=== PATIENT | female | born 1960 | race Caucasian/White ===

== ENCOUNTER 2017-01-30 18:14 | Emergency (ER) | payer BC ==
[~2017-01-30 18:14] MED LIST: ASPIR 8181 M1 PO; ASPIR 8181 MG PO; ASPIRIN EC81 MG PO; AUGMENTIN 875-1 EAC2 PO; BABY ASPIRIN81 MG PO; CIPRO500 MG PO; COMBIVENT RESPIM4 G1 INH; COMBIVENT1 PUFF INH; COREG6.25 M1 PO; CRESTOR20 MG PO; ERYTHROMYCIN1 GM EACH EYE; FENOFIBRATE200 M1 PO; HUMALOG100 U/ML SQ; HUMULIN N100 U/ML SQ; HUMULIN R100 U/ML SQ; HYDROCODON-ACE1 EAC7 PO; IBUPROFEN M200 M1 PO; LANTUS100 U/ML SC; LANTUS100 UNITS/ SC; LASIX20 M1 PO; LEVAQUIN750 M1 PO; LEVAQUIN750 MG PO; LEVEMIR FL100 UNIT/2 SC; LEVEMIR100 UNITS/ SC; LIPITOR20 M1 PO; LISINOPRIL10 M1 PO; LISINOPRIL10 MG PO; LYRICA100 MG PO; LYRICA150 MG/CAP PO; MUCINEX600 M1 PO; NEURONTIN400 M1 PO; NICODERM CQ1 EAC1 TD; NITROSTAT0.4 MG/TAB SL; NORCO 5/3251 TAB PO; NOVOLIN N100 UNIT/2; NOVOLOG100 U/M SQ; PERCOCET 5-3251 EACH PO; PERCOCET 5MG/AP1 TAB PO; PLAVIX75 M1 PO; PLAVIX75 MG PO; PREVACID30 MG PO; PRINIVIL20 M1 PO; PROMETHAZINE25 MG PO; SENNA DOCUSATE PO; SENNA PLUS TAB1 EACH PO; SIMVASTATIN40 MG PO; SINGULAIR10 M1 PO; SYMBICORT 160-1 PUFF INH; TOPROL XL25 M1 PO; TRAMADOL HCL50 M2 PO; TYLENOL TA325 MG/TA2 PO; ULTRAM50 M1 PO; WELLBUTRIN SR150 M2 PO; ZOFRAN ODT4 MG PO; ZOFRAN4 MG PO; ZYRTEC10 M7 PO; ZYRTEC10 MG PO
[2017-01-30] MEDS ORDERED: NORCO 5-325 TA1 EACH PO (19:16)
== END 2017-01-30 19:20 ==
LOC: EDMED 18:14
DX: R22.42 Localized swelling, mass and lump, left lower limb (principal); I25.10 Atherosclerotic heart disease of native coronary artery without angina pectoris; I10 Essential (primary) hypertension; E11.9 Type 2 diabetes mellitus without complications; E78.5 Hyperlipidemia, unspecified; F17.200 Nicotine dependence, unspecified, uncomplicated; Z90.49 Acquired absence of other specified parts of digestive tract; Z90.89 Acquired absence of other organs; Z79.4 Long term (current) use of insulin; Z79.82 Long term (current) use of aspirin; Z79.899 Other long term (current) drug therapy